=== PATIENT | female | born 1985 | race Caucasian/White ===

== ENCOUNTER → 2017-04-25 | Outpatient (CLI) | payer OTHER ==
[2017-04-25 12:20] LABS: ALBUMIN 3.4 GM/DL (3.2-5.2); ALBUMIN/GLOBULIN RATIO 1.03 (1.00-1.93); ALKALINE PHOSPHATASE 85 U/L (45-117); ALT/SGPT 54 U/L (12-78); ANION GAP 8 MEQ/L (8-16); AST/SGOT 27 U/L (7-37); BILIRUBIN,TOTAL 0.3 MG/DL (0.2-1.0); BLOOD UREA NITROGEN 14 MG/DL (7-18); CARBON DIOXIDE LEVEL 26 MEQ/L (21-32); CHLORIDE LEVEL 106 MEQ/L (98-107); CREATININE FOR GFR 0.77 MG/DL (0.55-1.02); GLOMERULAR FILTRATION RATE > 60.0 (>60); GLUCOSE, FASTING 82 MG/DL (70-105); HCG, SERUM QUANTITATIVE < 1.0 MIU/ML; POTASSIUM SERUM 4.5 MEQ/L (3.5-5.1); SODIUM LEVEL 140 MEQ/L (136-145); TOTAL PROTEIN 6.7 GM/DL (6.4-8.2)
[2017-04-25 12:21] LABS: LUTEINIZING HORMONE 9.2 mIU/mL; PROGESTERONE 0.3 NG/ML
[2017-04-25 12:22] LABS: ESTRADIOL 48.3 PG/ML; FOLLICLE STIMULATING HORMONE 9.3 mIU/mL
[2017-04-30 08:06] LABS: ANTI MULLERIAN HORMONE 5.29 ng/mL (.)
[2017-05-03 00:06] LABS: FRAGILE X DNA Comment: (.)
[2017-05-03 08:06] LABS: SMN1 CARRIER DETECTION RATE Note (.); SMN1 COMMENTS Note (.); SMN1 DISCLAIMER Note (.); SMN1 INTERPRETATION Note (.); SMN1 METHOD/LIMITATIONS Note (.); SMN1 REFERENCES Note (.)
== END ==
LOC: M LABDRAW1 10:23
PROVIDERS: ATTEND Obstetrics & Gynecology Reproductive Endocrinology
DX: Z31.41 Encounter for fertility testing (principal)

== ENCOUNTER → 2017-05-01 | Outpatient (REF) | payer OTHER ==
[2017-05-01 13:18] LABS: PROGESTERONE 0.3 NG/ML
[2017-05-01 13:19] LABS: LUTEINIZING HORMONE 8.7 mIU/mL
== END ==
LOC: M LABDRAW1 11:39
PROVIDERS: ATTEND Obstetrics & Gynecology Reproductive Endocrinology
DX: N97.9 Female infertility, unspecified (principal)

== ENCOUNTER → 2017-05-04 | Outpatient (REF) | payer OTHER ==
[2017-05-04 13:12] LABS: PROGESTERONE 0.3 NG/ML
[2017-05-04 13:13] LABS: ESTRADIOL 46.5 PG/ML
== END ==
LOC: M LABDRAW1 10:50
PROVIDERS: ATTEND Obstetrics & Gynecology Reproductive Endocrinology
DX: N97.9 Female infertility, unspecified (principal)

== ENCOUNTER → 2017-05-11 | Outpatient (REF) | payer OTHER ==
[2017-05-11 11:58] LABS: PROGESTERONE 0.2 NG/ML
[2017-05-11 11:59] LABS: ESTRADIOL 23.3 PG/ML; LUTEINIZING HORMONE 19.3 mIU/mL
== END ==
LOC: M LAB REF 11:31
PROVIDERS: ATTEND Obstetrics & Gynecology Reproductive Endocrinology
DX: N97.9 Female infertility, unspecified (principal)

== ENCOUNTER → 2017-05-15 | Outpatient (REF) | payer OTHER ==
[2017-05-15 14:15] LABS: LUTEINIZING HORMONE 11.9 mIU/mL; PROGESTERONE 0.4 NG/ML
[2017-05-15 14:16] LABS: ESTRADIOL 37.1 PG/ML
== END ==
LOC: M LABDRAW1 13:49
PROVIDERS: ATTEND Obstetrics & Gynecology Reproductive Endocrinology
DX: E28.9 Ovarian dysfunction, unspecified (principal)

== ENCOUNTER → 2017-05-21 | Outpatient (REF) | payer OTHER ==
[2017-05-21 12:20] LABS: LUTEINIZING HORMONE 24.8 mIU/mL; PROGESTERONE 0.2 NG/ML
== END ==
LOC: M LABDRAW1 09:38
PROVIDERS: ATTEND Obstetrics & Gynecology Reproductive Endocrinology
DX: N97.9 Female infertility, unspecified (principal)

== ENCOUNTER → 2017-05-25 | Outpatient (CLI) | payer OTHER ==
[2017-05-25 10:42] LABS: HCG, SERUM QUANTITATIVE < 1.0 MIU/ML; LUTEINIZING HORMONE 12.4 mIU/mL; PROGESTERONE 0.5 NG/ML
[2017-05-25 10:43] LABS: ESTRADIOL 91.1 PG/ML; FOLLICLE STIMULATING HORMONE 8.1 mIU/mL
== END ==
LOC: M LAB 09:37
PROVIDERS: ATTEND Obstetrics & Gynecology Reproductive Endocrinology
DX: E28.9 Ovarian dysfunction, unspecified (principal)

== ENCOUNTER → 2017-06-08 | Outpatient (REF) | payer OTHER ==
[2017-06-08 12:04] LABS: PROGESTERONE 14.9 NG/ML
[2017-06-08 12:05] LABS: ESTRADIOL 59.4 PG/ML; LUTEINIZING HORMONE 7.5 mIU/mL
[2017-06-08 12:06] LABS: FOLLICLE STIMULATING HORMONE 6.6 mIU/mL
[2017-06-08 12:13] LABS: HCG, SERUM QUANTITATIVE 5 MIU/ML
== END ==
LOC: M LABDRAW1 09:15
DX: E28.9 Ovarian dysfunction, unspecified (principal)

== ENCOUNTER → 2017-06-11 | Outpatient (REF) | payer OTHER ==
[2017-06-11 12:04] LABS: HCG, SERUM QUANTITATIVE 17 MIU/ML
== END ==
LOC: M LABDRAW1 09:00
DX: O09.00 Supervision of pregnancy with history of infertility, unspecified trimester (principal)

== ENCOUNTER → 2017-06-15 | Outpatient (REF) | payer OTHER ==
[2017-06-15 12:05] LABS: HCG, SERUM QUANTITATIVE 193 MIU/ML
[2017-06-15 14:23] LABS: ESTRADIOL 145.9 PG/ML
== END ==
LOC: M LABDRAW1 11:40
DX: Z32.01 Encounter for pregnancy test, result positive (principal)

== ENCOUNTER → 2017-06-22 | Outpatient (REF) | payer OTHER ==
[2017-06-22 11:59] LABS: PROGESTERONE 14.5 NG/ML
[2017-06-22 12:00] LABS: ESTRADIOL 195.3 PG/ML
[2017-06-22 12:05] LABS: HCG, SERUM QUANTITATIVE 2858 MIU/ML
== END ==
LOC: M LABDRAW1 11:28
DX: O09.00 Supervision of pregnancy with history of infertility, unspecified trimester (principal)

== ENCOUNTER → 2017-06-29 | Outpatient (REF) | payer OTHER ==
[2017-06-29 13:43] LABS: ESTRADIOL 268.2 PG/ML
[2017-06-29 13:57] LABS: HCG, SERUM QUANTITATIVE 14276 MIU/ML
== END ==
LOC: M LABDRAW1 12:52
DX: O09.00 Supervision of pregnancy with history of infertility, unspecified trimester (principal)

== ENCOUNTER → 2017-07-06 | Outpatient (REF) | payer OTHER ==
[2017-07-06 14:17] LABS: ESTRADIOL 443.8 PG/ML
[2017-07-06 14:17] LABS: PROGESTERONE 10.9 NG/ML
[2017-07-06 14:45] LABS: HCG, SERUM QUANTITATIVE 32580 MIU/ML
== END ==
LOC: M LABDRAW1 13:12
DX: O09.00 Supervision of pregnancy with history of infertility, unspecified trimester (principal); Z3A.00 Weeks of gestation of pregnancy not specified
CPT/HCPCS: 84443

== ENCOUNTER 2025-05-26 13:25 | Outpatient (CLI) | payer OTHER ==
[~2025-05-26] VITALS: Ht 167.6 cm; Wt 137.4 kg
[2025-05-26 15:56] VITALS: BP 121/72
[2025-05-26] MEDS ORDERED: ASPI81CH33 PO (15:58)
[2025-05-26] MEDS ORDERED: PRENTAB9 PO (15:58)
[2025-05-26] MEDS ORDERED: VITAD400CA FT (15:58)
[2025-05-26] MEDS ORDERED: LEVO200T4 PO (15:58)
[2025-05-26] MEDS ORDERED: FOLI400T13 PO (15:58)
== END 2025-05-26 18:15 | disposition home or self-care (01) ==
LOC: M LDO 13:25
PROVIDERS: ATTEND Advanced Practice Midwife
DX: O30.033 Twin pregnancy, monochorionic/diamniotic, third trimester (principal); O43.023 Fetus-to-fetus placental transfusion syndrome, third trimester; O09.523 Supervision of elderly multigravida, third trimester; Z3A.35 35 weeks gestation of pregnancy
CPT/HCPCS: 59025; 76815; 76819; 76820; G0463

== ENCOUNTER 2025-05-28 06:00 | Outpatient (CLI) | payer OTHER ==
[~2025-05-28] VITALS: Ht 162.6 cm; Wt 138.2 kg
[~2025-05-28 06:00] MED LIST: ASPI81CH33 PO; FOLI400T13 PO; LEVO200T4 PO; PRENTAB9 PO; VITAD400CA FT
[2025-05-28 06:18] VITALS: BP 133/65
[2025-05-28 07:39] VITALS: BP 115/65
== END 2025-05-28 09:00 | disposition home or self-care (01) ==
LOC: M LDO 06:00
PROVIDERS: ATTEND Obstetrics & Gynecology
DX: O47.03 False labor before 37 completed weeks of gestation, third trimester (principal); O30.033 Twin pregnancy, monochorionic/diamniotic, third trimester; O43.023 Fetus-to-fetus placental transfusion syndrome, third trimester; Z3A.35 35 weeks gestation of pregnancy
CPT/HCPCS: 59025; 76815; 76819; 76820; G0463